=== PATIENT | female | born 1945 | race Caucasian/White ===

== ENCOUNTER 2017-10-28 09:56 | Inpatient (IN) | payer OTHER ==
[2017-10-28] MEDS ORDERED: ACETAMINOPHEN 325 MG TAB PO ONE (11:16)
[2017-10-28] MEDS ORDERED: ONDANSETRON DISINTEGRATING 4 MG TAB PO PRN (14:35)
[2017-10-28] MEDS ORDERED: ONDANSETRON 4 MG/2 ML VIAL IVP PRN (14:35)
--- NOTE | 2017-10-28 15:03 | GHP ---
[f rep st] HISTORY AND PHYSICAL DATE OF ADMISSION: 10/28/2017 CHIEF COMPLAINT: Fall with hip pain. HISTORY OF PRESENT ILLNESS: This is a 72-year-old female with a history of osteoporosis. She slippe d on the ice onto the right side. She suffered a pubic rami fracture, possible sacral fracture. Ther e was no syncope. It was a mechanical fall. She has been feeling well otherwise. She has a history of lymphoma and had radiation about a month and half ago. She is also on Rituxan. No other complai nts. REVIEW OF SYSTEMS: A 10-point review of systems was obtained and negative. PAST MEDICAL HISTORY: 1. 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 She is st atus post radiation and undergoing 2 years of Rituxan. 2. Hypertension. 3. Osteoporosis. MEDICATIONS: Reviewed. SOCIAL HISTORY: No smoking. Occasional alcohol. Lives by herself. There is a 2 story apartment. FAMILY HISTORY: Both parents are . PHYSICAL EXAM: VITAL SIGNS: Afebrile, blood pressure is 124/72, heart rate 89, oxygen saturation 94 % on room air. In general, patient is well developed, no apparent distress. HEENT: Nonicteric scle shabbir. Extraocular movements intact. Moist mucous membranes. NECK: Supple. No thyromegaly. LUNGS: Good effort. Clear to auscultation bilaterally. CARDIOVASCULAR: Regular rate and rhythm. No mur murs, gallops. ABDOMEN: Positive bowel sounds. Soft, nontender, nondistended. No hepatosplenomega ly. EXTREMITIES: No clubbing, cyanosis, or edema. SKING: Without rash, dry, intact. NEUROLOGIC: Alert and oriented x3. Moving all 4 extremities equally. PSYCH: Normal mood and affect. LABS: There are no labs. RADIOLOGY: Hip x-ray shows acute fractures of the right inferior superior pubic rami and probable ri ght sacral fracture. ASSESSMENT: A 72-year-old female with a pelvic fracture. PLAN: 1. Pelvic fracture. The patient will be weightbearing as tolerated. We will give pain medicines. T his is non operative. 2. History of lymphoma, will check some labs. 3. Osteoporosis, continue her vitamin D and bisphosphonate. /[id number]/MODL
--- NOTE | 2017-10-28 15:57 | PDMN ---
Medical Necessity Medical necessity: C/M review: est. 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
[2017-10-28] MEDS ORDERED: ACETAMINOPHEN 650 MG SUPP PR SCH ×2 (16:00)
[2017-10-28] MEDS ORDERED: ACETAMINOPHEN 650 MG SUPP PR PRN (16:22)
[2017-10-28] MEDS: ACETAMINOPHEN 325 MG TAB PO SCH ×2 (16:51→21:14)
--- NOTE | 2017-10-28 17:30 | EDPHY ---
H & P Smoking Status: Never smoked HPI/ROS: Chief complaint: Pelvis pain History of present illness: This is a 72-year-old female who was brought to the emergency department for pelvic pain. Patient slipped and fell on the ice striking her pelvis. Since then she has had pain. She can still move. However pain is better when she lays still. She denies associated signs or symptoms including no open wounds. No report of trauma to other parts of the body. Review of systems: A 10 point review of systems was obtained and other than described above was negative (Curt Yanez) Physical Exam: General Appearance: Alert, nontoxic Eyes: PERRLA Respiratory: Lungs clear to auscultation bilaterally Cardiac: Regular rate and rhythm. Gastrointestinal: Bowel sounds are normal. Abdomen is soft, nondistended, nontender. Neurological: Alert and oriented x4. Strength and sensation intact and symmetrical. Skin: No lesions consistent with trauma. Musculoskeletal: Head is nontender. Back nontender. The chest wall is nontender. There is discomfort moving the pelvis. She has discomfort moving the right hip although she can still do this. The rest of the extremities are unremarkable. (Curt Yanez) Constitutional: Initial Vital Signs Temperature (C) 36.8 C 10/28/17 10:02 Heart Rate 95 10/28/17 10:02 Respiratory Rate 18 10/28/17 10:02 Blood Pressure 121/80 H 10/28/17 10:02 O2 Sat (%) 97 10/28/17 10:02 O2 Delivery Mode Room Air Allergies/Adverse Reactions: bacitracin [From Neosporin ([id number])] Allergy (Verified 10/28/17 10:02) neomycin [From Neosporin ([id number]-kqs-[id number])] Allergy (Verified 10/28/17 10:02) polymyxin B [From Neosporin ([id number]-ibr-[id number])] Allergy (Verified 10/28/17 10:02) Pork/Porcine Containing Products Allergy (Verified 10/28/17 10:02) Home Medications: Medication Instructions Recorded Alendronate Sodium [Fosamax 70 MG 70 mg PO WE@0700 10/28/17 (*)] Ascorbic Acid [Vitamin C 500 mg 1,000 mg PO DAILY 10/28/17 (*)] Calcium Carb W/Vit D [Calcium Carb 500 mg PO DAILY 10/28/17 W/Vit D 500/200 (*)] Cholecalciferol Vit D3 [Vitamin D3 1,000 units PO DAILY 10/28/17 (*)] Herbals/Supplements -Info Only 1 ea PO DAILY 10/28/17 Lisinopril [Zestril 10 mg (*)] 10 mg PO DAILY 10/28/17 Multivitamins [Multivitamin (*)] 1 tab PO DAILY 10/28/17 [place]-3 Fatty Acids [Fish Oil 1000 1,000 mg PO DAILY 10/28/17 mg (*)] riTUXimab [Rituxan 100mg (RX)] 0 mg IV Q60D 10/28/17 MDM/Departure - [facility] Imaging: I viewed and interpreted images myself - [facility] Medications Given: Acetaminophen (Tylenol) 650 mg PO TID [facility] Stop: 04/26/18 16:29 Last Admin: 10/30/17 20:18 Dose: 650 mg Enoxaparin Sodium (Lovenox) 40 mg SC DAILY JESSY Stop: 04/28/18 13:44 Last Admin: 10/30/17 14:04 Dose: 40 mg Lisinopril (Zestril) 10 mg PO DAILY JESSY Stop: 04/27/18 08:59 Last Admin: 10/30/17 09:47 Dose: 10 mg Polyethylene Glycol (Miralax) 17 gm PO DAILY JESSY PRN Reason: Protocol Stop: 04/28/18 08:59 Last Admin: 10/30/17 09:52 Dose: 17 gm Senna/Docusate Sodium (Senokot-S) 1 - 2 tab PO BID JESSY PRN Reason: Protocol Stop: 04/27/18 20:59 Last Admin: 10/30/17 20:18 Dose: 1 tab Tramadol HCl (Ultram) 50 mg PO Q6HRS PRN PRN Reason: Pain, Moderate Able to Take PO Stop: 04/26/18 14:40 Last Admin: 10/30/17 20:18 Dose: 50 mg Discontinued Medications Acetaminophen (Tylenol) 650 mg PO EDNOW ONE Stop: 10/28/17 11:17 Last Admin: 10/28/17 11:47 Dose: 650 mg Acetaminophen (Tylenol Rectal) 650 mg RI TID JESSY Stop: 04/26/18 15:59 Last Admin: 10/28/17 16:57 Dose: Not Given ED Course/Re-evaluation: Patient is discussed with my secondary supervising physician Dr. Mikayla Decker. Patient presents to the emergency department after sustaining a fall injuring her pelvis. She does appear to have multiple pelvic fractures. She is hemodynamically stable. By history and physical exam no evidence of trauma to other parts of the body. She does not appear to be able to ambulate well on her own. I do not believe she is safe for discharge home. She will be admitted to the hospitalist service for further evaluation and care. Dr. Pickard of orthopedics will consult on this patient. The plan has been discussed with the patient who voiced understanding and agreement with it. (Curt Yanez) The patient was evaluated and managed by the physician patient services assistant. I have reviewed this chart and I agree with the findings and plan of care as documented , as indicated by my signature. I am the secondary supervising physician. ( Mikayla Decker) Differential Diagnosis: Included but not limited to contusion, bony fracture, joint dislocation (Curt Yanez) - Depart Disposition: [facility] Inpatient Acute Clinical Impression: Pelvic fracture Qualifiers: Encounter type: initial encounter Pelvic bone location: unspecified part of pelvis Fracture type: closed Fracture alignment: nondisplaced Qualified Code(s) : S32.9XXA - Fracture of unspecified parts of lumbosacral spine and pelvis, initial encounter for closed fracture Condition: Fair
--- NOTE | 2017-10-28 17:56 | ASMTCMCOM ---
CM Note CM Note Notes: Pt admitted for right pelvis fracture (non-operative), and being unable to ambulate independently or return home safely at this time. Spoke with patient and we discussed possibility of going home from the ED and that her grandson Nils and/or her niece Ayleen (pt's POA?) would be able to stay with her overnight. However, pt wasn't able to successfully ambulate well enough for a safe discharge home. Patient states her home has two levels, all the bedrooms on the top floor and kitchen on the main floor. Patient would not be able to walk up and down stairs at this time. After assessment and discussion with the ED provider it was determined pt would benefit from additional monitoring, inpatient PT/OT assessments and assistance with setting up homecare. We discussed needing to get a walker, elevated toilet seat or bedside commode, and possibly other DME; in addition to setting up homecare. Patient provided information on non-skilled homecare and skilled homecare ([employer]). Anticipate pt to dc home with homecare and DME once medically stable. CM to follow. Date Signed: 10/28/2017 05:55 PM Electronically Signed By:Stefanie Mcelroy RN
--- NOTE | 2017-10-28 22:09 | PDCONSULT ---
[employer] Note: Consult Note - Orthopaedics DOS: 10/28/2017 CC: Right pelvic fractures HPI: Called to evaluate patient by ED PA after patient arrives on floor. 72y F s/p fall after slip on ice p/w Right rami fractures and possible sacral fracture. Patient was able to ambulate after the fall but felt that something was wrong and presented to ED for further evaluation. PMHx: Osteopenia, HTN, Lymphoma Meds: Fosamax for osteopenia, Rituxan, lisinopril SocHx: Nonsmoker. ROS: recently underwent radiation for lymphoma. Otherwise has been fairly active, including regular ambulation. MSK per HPI. Other systems reviewed at baseline PE: AxOx4. unlabored RLE: active hip flexion and motion with minimal pain in bed. Minimal TTP at rami and along lateral sacrum. No pain with log roll of hip. SILT S/S/SP/Dp/T of Right foot. 2+ DP Imaging: Right superior and inferior fractures. Possible right sacrum nondisplaced fracture Plan: 72y F w osteopenia p/w Right rami fractures and possible sacral fracture ( nondisplaced) after SLF on ice. - Recommend nonop treatment for pelvic fractures given that patient has already mobilized and ED films do not show vertical displacement of pelvis - WBAT RLE - PT and pain control - [facility]up [facility] in 2-3 weeks for repeat films and exam. - obtaining inlet/outlet pelvic views
[2017-10-29 05:45] LABS: PLATELET COUNT 133 10^3/uL (150-400)
[2017-10-29] MEDS: ACETAMINOPHEN 325 MG TAB PO SCH ×3 (11:15→21:51)
[2017-10-29] MEDS: LISINOPRIL 10 MG TAB PO SCH (11:16)
--- NOTE | 2017-10-29 11:21 | HOSPPROG ---
Hospitalist Progress Note Assessment/Plan: Patient is a 72-year-old female with a history of osteoporosis. She slipped and fell on her right side. She sustained a pubic ramus fracture. Today is my 1st encounter with the patient. Chart reviewed. *r pelvis fx appreciate ortho wbat she lives in a house with many stairs, will need rehab to strengthen and return there *osteoporosis home med resumed *non-Hodgkin lymphoma s/p radiation and 2 years of Rituxan *recent loss her this past May from a heart attack *dvt prophylaxis: LMWH *Plan: she will require further IP stay for mobility, will initiate bowel protocol and Lovenox. Subjective: Julianne said pain is well managed until she stands. Objective: Vital Signs Temp Pulse Resp BP Pulse Ox 36.5 C 94 15 137/69 H 92 10/29/17 07:57 10/29/17 07:57 10/29/17 07:57 10/29/17 11:16 10/29/17 07:57 Laboratory Results 10/29/17 04:22 10/29/17 04:22 10/28/17 10/29/17 10/30/17 05:59 05:59 05:59 Intake Total 400 350 Output Total 1300 1000 Balance -900 -650 - Physical Exam Constitutional: uncomfortable Eyes: PERRL Ears, Nose, Mouth, Throat: hearing normal Cardiovascular: regular rate and rhythym Respiratory: no respiratory distress, reduced air movement Gastrointestinal: normoactive bowel sounds Skin: warm Musculoskeletal: generalized weakness Neurologic: AAOx3 Psychiatric: interacting appropriately ICD10 Worksheet Patient Problems: Problems Problem Status Onset Pelvic fracture Acute
--- NOTE | 2017-10-29 13:44 | ASMTCMCOM ---
CM Note CM Note Notes: Patient admitted for a non-surgical pelvic fracture. PT/OT recommending SNF. Patient has elected to go to [facility] for Rehab. They will visit with her tomorrow. Current CM Discharge plan: [facility] Date Signed: 10/29/2017 01:44 PM Electronically Signed By:Dione Nguyen RN
[2017-10-29] MEDS ORDERED: MAGNESIUM HYDROXIDE 30 ML UDCUP PO PRN (16:31)
[2017-10-29] MEDS ORDERED: LACTULOSE 20 GM/30 ML UDCUP PO PRN (16:31)
[2017-10-29] MEDS ORDERED: BISACODYL 10 MG SUPP PR PRN (16:31)
[2017-10-29] MEDS: traMADol 50 MG TAB PO PRN (17:26)
[2017-10-29] MEDS: SENNOSIDES/DOCUSATE SODIUM TAB PO SCH (21:51)
[2017-10-30] MEDS: ACETAMINOPHEN 325 MG TAB PO SCH ×3 (09:46→20:18)
[2017-10-30] MEDS: SENNOSIDES/DOCUSATE SODIUM TAB PO SCH ×2 (09:46→20:18)
[2017-10-30] MEDS: LISINOPRIL 10 MG TAB PO SCH (09:47)
[2017-10-30] MEDS: POLYETHYLENE GLYCOL 3350 17 GM PKT PO SCH (09:52)
--- NOTE | 2017-10-30 10:47 | ASMTCMCOM ---
CM Note CM Note Notes: Referral sent to [facility] pt is friend of [facility]. [facility] does state she may have a female bed tomorrow and will review referral. CM to follow. D/c plan fo care: [facility] vs. SNF. Date Signed: 10/30/2017 10:47 AM Electronically Signed By:BLADE Mederos
--- NOTE | 2017-10-30 13:39 | HOSPPROG ---
Hospitalist Progress Note Assessment/Plan: Patient is a 72-year-old female with a history of osteoporosis. She slipped and fell on her right side. She sustained a pubic ramus fracture. *r pelvis fx appreciate ortho wbat she lives in a house with many stairs, will need rehab to strengthen and return there *osteoporosis home med resumed *non-Hodgkin lymphoma s/p radiation and 2 years of Rituxan sees Dr Uribe at *recent loss her this past January from a heart attack *dvt prophylaxis: LMWH *Plan: she would like to be discharged to if possible or to [facility]. Subjective: Julianne overall is feeling fine. Objective: Vital Signs Temp Pulse Resp BP Pulse Ox 36.4 C 99 18 120/66 91 L 10/30/17 07:26 10/30/17 07:26 10/30/17 07:26 10/30/17 09:47 10/30/17 07:26 Laboratory Results 10/29/17 04:22 10/29/17 04:22 10/29/17 10/30/17 10/31/17 05:59 05:59 05:59 Intake Total 400 1000 Output Total 1300 3800 700 Balance -900 -2800 -700 - Physical Exam Constitutional: no apparent distress, appears nourished Eyes: PERRL Ears, Nose, Mouth, Throat: hearing normal Cardiovascular: regular rate and rhythym Respiratory: no respiratory distress Gastrointestinal: normoactive bowel sounds Skin: warm Musculoskeletal: generalized weakness Neurologic: AAOx3 Psychiatric: interacting appropriately ICD10 Worksheet Patient Problems: Problems Problem Status Onset Pelvic fracture Acute
[2017-10-30] MEDS: ENOXAPARIN 40 MG/0.4 ML SYR SC SCH (14:04)
--- NOTE | 2017-10-30 15:34 | ASMTCMCOM ---
CM Note CM Note Notes: Pt accepted at [facility], she will discuss w friends/family to determine if she will choose [facility] or [facility]. D/c plan of care: [facility] or [facility] SN[facility] likely tomorrow. Date Signed: 10/30/2017 03:34 PM Electronically Signed By:BLADE Mederos
[2017-10-30] MEDS: traMADol 50 MG TAB PO PRN (20:18)
[2017-10-31 00:02] VITALS: O2SAT 96
[2017-10-31 07:36] VITALS: BP 99/67; PULSE 86; RESP 16; TEMP 97.8
--- NOTE | 2017-10-31 08:22 | HOSPPROG ---
Hospitalist Progress Note Assessment/Plan: Patient is a 72-year-old female with a history of osteoporosis. She slipped and fell on her right side. She sustained a pubic ramus fracture. *r pelvis fx appreciate ortho wbat she lives in a house with many stairs, will need rehab to strengthen and return there *osteoporosis home med resumed (Fosamax) *non-Hodgkin lymphoma s/p radiation and 2 years of Rituxan sees Dr Uribe at *recent loss her this past January from a heart attack *dvt prophylaxis: LMWH *Plan: dc today Subjective: Julianne is feeling well, ready to be dc. Objective: Vital Signs Temp Pulse Resp BP Pulse Ox 36.6 C 86 16 99/67 L 96 10/31/17 07:34 10/31/17 07:34 10/31/17 07:34 10/31/17 07:34 10/31/17 07:34 Laboratory Results 10/29/17 04:22 10/29/17 04:22 10/30/17 10/31/17 11/01/17 05:59 05:59 05:59 Intake Total 1000 400 Output Total 3800 1300 Balance -2800 -900 - Physical Exam Constitutional: appears nourished Eyes: PERRL Ears, Nose, Mouth, Throat: hearing normal Respiratory: no respiratory distress Skin: warm Musculoskeletal: generalized weakness Neurologic: AAOx3 Psychiatric: interacting appropriately ICD10 Worksheet Patient Problems: Problems Problem Status Onset Pelvic fracture Acute
[2017-10-31] MEDS ORDERED: CALCIUM CARB W/VIT D 500 MG TAB PO SCH (09:00)
[2017-10-31] MEDS ORDERED: ALENDRONATE SODIUM 70 MG TAB PO ONE (09:00)
[2017-10-31] MEDS ORDERED: ASCORBIC ACID 500 MG TAB PO SCH (09:00)
--- NOTE | 2017-10-31 09:14 | PDIAF ---
- Diagnosis Diagnosis: r pelvis fx, non hodgkin lymphoma, osteoporosis Code Status: Do Not Resuscitate - Medication Management Discharge Medications: Medications to Continue on Transfer Alendronate Sodium [Fosamax 70 MG (*)] 70 mg PO WE@0700 10/28/17 [Last Taken ] Ascorbic Acid [Vitamin C 500 mg (*)] 1,000 mg PO DAILY 10/28/17 [Last Taken 12/09 12:00] Calcium Carb W/Vit D [Calcium Carb W/Vit D 500/200 (*)] 500 mg PO DAILY [Last Taken 10/27/17 12:00] Cholecalciferol Vit D3 [Vitamin D3 (*)] 1,000 units PO DAILY 10/28/17 [Last Taken 10/27/17 12:00] Herbals/Supplements -Info Only 1 ea PO DAILY 10/28/17 [Last Taken Unknown] Lisinopril [Zestril 10 mg (*)] 10 mg PO DAILY 10/28/17 [Last Taken 10/28/17 07: 00] Multivitamins [Multivitamin (*)] 1 tab PO DAILY 10/28/17 [Last Taken 10/27/17 12 :00] [place]-3 Fatty Acids [Fish Oil 1000 mg (*)] 1,000 mg PO DAILY 10/28/17 [Last Taken 10/27/17 12:00] riTUXimab [Rituxan] 0 mg IV Q60D 10/28/17 [Last Taken 10/10/17] Acetaminophen [Tylenol 325mg (*)] 650 mg PO TID tab 10/31/17 [Last Taken Unknown] Enoxaparin [Lovenox 40 MG (*)] 40 mg SC DAILY #7 syr 10/31/17 [Last Taken Unknown] Polyethylene Glycol 3350 [Miralax 17 gm (*)] 17 gm PO DAILY pkt 10/31/17 [Last Taken Unknown] Sennosides/Docusate Sodium [Senokot-S] 1 - 2 tab PO BID tab 10/31/17 [Last Taken Unknown] traMADol [Ultram 50 mg (*)] 50 mg PO Q6HRS PRN tab 10/31/17 [Last Taken Unknown ] Discharge Medications: Refer to the Discharge Home Medication list for PRN reason. - Orders Services needed: Physical Therapy, Occupational Therapy Isolation Type: None Diet Recommendation: no restrictions on diet Diet Texture: Regular Texture Diet Activity/Weight Bearing Restrictions: wbat Additional: follow up w Dr Pickard [facility] in 2 weeks for repeat xrays. CHARLIE wright when patient is more mobile - Follow Up Care Current Providers and Referrals: KAYLIN CELAYA [Primary Care Provider] - Moise Pickard MD [Medical Doctor] -
[2017-10-31] MEDS: ACETAMINOPHEN 325 MG TAB PO SCH (09:21)
[2017-10-31] MEDS: SENNOSIDES/DOCUSATE SODIUM TAB PO SCH (09:22)
[2017-10-31] MEDS: POLYETHYLENE GLYCOL 3350 17 GM PKT PO SCH (09:23)
[2017-10-31] MEDS: ENOXAPARIN 40 MG/0.4 ML SYR SC SCH (09:23)
[2017-10-31] MEDS: LISINOPRIL 10 MG TAB PO SCH (09:23)
--- NOTE | 2017-10-31 10:21 | GDS ---
[f rep st] DISCHARGE SUMMARY DISCHARGE DIAGNOSES: 1. Right pelvic fracture, possible sacral fracture. 2. Osteoporosis. 3. Non-Hodgkin's lymphoma. 4. Recent stressors. CONSULTATION: Dr. Pickard. HISTORY: Briefly, the patient is a 72-year-old female with a history of osteoporosis. She slipped and fell on her right side. She sustained a pubic ramus fracture. She was admitted and evaluated by Orthopedics. The recommendation was weightbearing as tolerated. Today, she will be discharged to a long-term facility, [facility], for rehabilitation. She will further follow up with Dr. Pickadr in 2 weeks. HOSPITAL COURSE: 1. Right pelvis fracture, possible sacral fracture. She will go to rehabilitation. 2. Osteoporosis, on Fosamax. 3. Non-Hodgkin's lymphoma. She sees Dr. Uribe at . She is status post radiation and 2 years of Rituxan. 4. Recent stressors. Her this past January from a heart attack. She is coping quite well. DISCHARGE CONDITION: Blood pressure is 119/71, heart rate is 85, respiratory rate is 19, O2 sats on room air 94%, temperature 36.5 Celsius, O2 saturation on room air 96%. DISCHARGE INSTRUCTIONS: 1. Weightbearing as tolerated. 2. Follow up with Dr. Pickard in 2 weeks. 3. Continue Lovenox until she is more mobile. TIME SPENT: Greater than 30 minutes discharging and coordinating the patient's care. Copy requested to: Dr. Uribe /[id number]/MODL MTDD
--- NOTE | 2017-10-31 11:53 | ASDISCHSUM ---
Discharge Information Plan Status:SNF Medically Cleared to Leave: Discharge Date:10/31/2017 11:26 AM D/C [facility] D[facility]C [facility] Projected Discharge Date:10/31/2017 11:00 AM Transportation at D/C: Discharge Delay Reason: Follow-Up Date:10/31/2017 11:00 AM Discharge Slot: Final Diagnosis: Placement Information Referral Type:*Assisted/SNF Referral ID:[id number] Provider Name:[facility] Address 1:[address] [facility] [address] [facility] Address 2: City:[place] Selection Factors: State:[place] Patient Contact Information Contact Name:MADHAV Relationship:Selena Address:[facility] Work Phone: City: [facility] Phone: [facility] Code: Email: Financial Information Financial Class: Primary Plan Desc:MEDICARE INPATIENT Primary Plan Number:[id number] [facility] Secondary Plan Number:[id number] Assessment Information [facility] CM Progress Note CM Note CM Note Notes: Pt admitted for right pelvis fracture (non-operative), and being unable to ambulate independently or return home safely at this time. Spoke with patient and we discussed possibility of going home from the ED and that her grandson Nils and/or her niece Ayleen (pt's POA?) would be able to stay with her overnight. However, pt wasn't able to successfully ambulate well enough for a safe discharge home. Patient states her home has two levels, all the bedrooms on the top floor and kitchen on the main floor. Patient would not be able to walk up and down stairs at this time. After assessment and discussion with the ED provider it was determined pt would benefit from additional monitoring, inpatient PT/OT assessments and assistance with setting up homecare. We discussed needing to get a walker, elevated toilet seat or bedside commode, and possibly other DME; in addition to setting up homecare. Patient provided information on non-skilled homecare and skilled homecare ([employer]). Anticipate pt to dc home with homecare and DME once medically stable. CM to follow. Date Signed: 10/28/2017 05:55 PM Electronically Signed By:Stefanie Mcelroy RN [facility] CM Progress Note CM Note CM Note Notes: Patient admitted for a non-surgical pelvic fracture. PT/OT recommending SNF. Patient has elected to go to [facility] for Rehab. They will visit with her tomorrow. Current CM Discharge plan: [facility] Date Signed: 10/29/2017 01:44 PM Electronically Signed By:Dione Nguyen RN [facility] CM Progress Note CM Note CM Note Notes: Referral sent to [facility] , pt is friend of [facility]. [facility] does state she may have a female bed tomorrow and will review referral. CM to follow. D/c plan fo care: [facility] vs. SNF. Date Signed: 10/30/2017 10:47 AM Electronically Signed By:BLADE Mederos [facility] CM Progress Note CM Note CM Note Notes: Pt accepted at [facility], she will discuss w friends/family to determine if she will choose or [facility]. D/c plan of care: [facility] likely tomorrow. Date Signed: 10/30/2017 03:34 PM Electronically Signed By:BLADE Mederos Case Management Discharge Plan Note Case Management Discharge Discharge Order Complete? Answers: Yes Patient to Obtain Answers: Other Notes: [facility] and [facility] Medications Transportation Arranged Answers: Other Notes: [facility] will Pick (Date 10/31/2017 11:15 AM & Time) Faxed Final Orders Answers: Yes Agency/Facility Transfer Answers: Yes Report Printed & Faxed to Receiving Agency Family Notified Answers: Yes Notes: pt will notify neice Discharge Comments Notes: Pt w/dc orders to SNF today. Met w/pt who let me know she has chosen [facility] over [facility] since private room available at [facility]. Spoke to Camila at [facility] and they are ready to accept. Orders and info sent through [employer]. Discussed w/RN who will call report. Date Signed: 10/31/2017 10:26 AM Electronically Signed By:Linda Juarez RN Intervention Information Intervention Type:*IM-Signed Date of Service:10/31/2017 10:15 AM Patient Type:Inpatient Staff Member:Blanca Downing Hours: Discipline: Severity: Comment:
[2017-11-07] MEDS ORDERED: ALENDRONATE SODIUM 70 MG TAB PO SCH (07:00)
== END 2017-10-31 11:26 | DRG 536 ==
LOC: F3N 13:13 → OBSVTOIN 14:39
PROVIDERS: ADMIT Internal Medicine; ATTEND Internal Medicine
DX: S32.511A Fracture of superior rim of right pubis, initial encounter for closed fracture (principal); S32.591A Other specified fracture of right pubis, initial encounter for closed fracture; S32.19XA Other fracture of sacrum, initial encounter for closed fracture; W00.0XXA Fall on same level due to ice and snow, initial encounter; Y92.9 Unspecified place or not applicable; Y99.8 Other external cause status; I10 Essential (primary) hypertension; C82.90 Follicular lymphoma, unspecified, unspecified site; Z92.3 Personal history of irradiation
CPT/HCPCS: 97110-GP; 97116-GP; 97161-GP; 97166-GO; 97530-GP; 97535-GO; G8978-GP-CJ; G8979-GP-CI; G8987-GO-CK; G8988-GO-CI; G8989-GO-CJ; J1650

== ENCOUNTER 2018-10-19 19:56 | Emergency (ER) | payer OTHER ==
--- NOTE | 2018-10-19 20:08 | EDPHY ---
HPI/HX/ROS/PE/MDM Narrative: CHIEF COMPLAINT: Vaginal bleeding HISTORY OF PRESENT ILLNESS: The patient is a 73 y/o female with a history of non-Hodgkin's lymphoma and diabetes complaining of vaginal bleeding with a couple of blood clots, onset at 19:00, 1 hour ago. Prior to the onset of bleeding she did a 3 mile walk and did not have any pain. Today she did notice some mild bilateral lower extremity swelling, right greater than left, which is abnormal. She is on continuous treatment for the lymphoma (Rituxan), which she last received earlier in September. Since she is on Rituxan, she does bleed more easily. She went through menopause when she was around 49 years old. She denies any significant past obstetrics gyn history. . No fever, chills, chest pain, shortness of breath, palpitations, vomiting, diarrhea, urinary complaints, headache, lightheadedness. REVIEW OF SYSTEMS: Aside from elements discussed in the HPI, a comprehensive 10-point review of systems was reviewed and is negative. PAST MEDICAL HISTORY: Non-Hodgkin lymphoma, type 2 diabetes, osteoporosis SOCIAL HISTORY: Friend at bedside, lives in [place], retired VITAL SIGNS: Reviewed by me GENERAL: Well-developed, well-nourished, resting comfortably in no respiratory distress. HEENT: Atraumatic. Eyes: No icterus, no injection. Mouth: moist mucous membranes. No erythema or lesions. Neck: supple with no adenopathy. LUNGS: Clear to auscultation bilaterally, no wheezes, rhonchi or rales. CARDIAC: Regular rate and rhythm, no rubs, murmurs or gallops. ABDOMEN: Soft, nontender, nondistended, bowel sounds normal. BACK: No CVA tenderness. : Blood at the introitus with a dried clot. EXTREMITIES: No trauma. Mild edema bilaterally right greater than left slightly. Nontender. Range of motion is normal throughout. NEURO: Alert and oriented, grossly nonfocal. SKIN: Warm and dry, no rash. PSYCHIATRIC: Normal mentation, no agitation. Portions of this note were transcribed by a medical lab specialist. I personally performed a history, physical exam, medical decision making, and confirmed accuracy of information the transcribed note. ED Course: The patient is a 73 y/o female with a history of non-Hodgkin's lymphoma and diabetes presenting with vaginal bleeding with a couple of blood clots, onset at 19:00, 1 hour ago. On exam she has blood at the introitus with a dried clot. Labs and pelvic US ordered; 1L IV NS administered. 2114: I consulted with the radiologist who reports that the patient has a complex cystic lesion at the uterine fundus. No UE ovarian masses noted. Lab were delayed but did demonstrate a sodium of 128. H&H were stable. 2117: Reassessed patient and discussed US findings. I discussed the possibility of having an abdominopelvic CT and the patient and I agree that it is not necessary at this time. She will need to follow up with an ROAD PATCHER for the abnormal uterine findings. She will also need to follow up with her oncologist regarding the low sodium. Return precautions provided; patient is comfortable with this plan. MDM: Differential diagnosis of the patient's vaginal bleeding includes dysfunctional uterine bleeding, trauma, cervicitis, uterine polyps, uterine fibroids, uterine cancer, cervical cancer, and infection. - Data Points Imaging Results: Imaging Impressions Pelvic/Renal Ultrasound 10/19/18 20:19 Impression: Complex cystic lesion at the uterine fundus either in a submucosal location or associated with the fundal portion of the endometrium. The etiology is indeterminate. This could represent endometrial polyps versus degenerating fibroid or associated with endometrial hyperplasia/carcinoma. Consider correlation with hysteroscopy considering development of vaginal bleeding. Findings discussed with Kriss Luna MD at 21:14 hour, 10/19/2018. Imaging: Discussed imaging studies w/ inbound call center representative Radiologist, I viewed and interpreted images myself Laboratory Results: Laboratory Results 10/19/18 20:20 10/19/18 20:20 10/19/18 10/19/18 20:20 20:20 WBC 7.37 10^3/uL 10^3/uL (3.80-9.50) RBC 4.36 10^6/uL 10^6/uL (4.18-5.33) Hgb 13.6 g/dL g/dL (12.6-16.3) Hct 38.5 % % (38.0-47.0) MCV 88.3 fL fL (81.5-99.8) MCH 31.2 pg pg (27.9-34.1) MCHC 35.3 g/dL g/dL (32.4-36.7) RDW 13.2 % % (11.5-15.2) Plt Count 155 10^3/uL 10^3/uL (150-400) MPV 10.7 fL fL (8.7-11.7) Neut % (Auto) 80.3 % H % (39.3-74.2) Lymph % (Auto) 9.8 % L % (15.0-45.0) Bent % (Auto) 9.0 % % (4.5-13.0) Eos % (Auto) 0.3 % L % (0.6-7.6) Baso % (Auto) 0.3 % % (0.3-1.7) Nucleat RBC Rel Count 0.0 % % (0.0-0.2) Absolute Neuts (auto) 5.93 10^3/uL 10^3/uL (1.70-6.50) Absolute Lymphs (auto) 0.72 10^3/uL L 10^3/uL (1.00-3.00) Absolute Monos (auto) 0.66 10^3/uL 10^3/uL (0.30-0.80) Absolute Eos (auto) 0.02 10^3/uL L 10^3/uL (0.03-0.40) Absolute Basos (auto) 0.02 10^3/uL 10^3/uL (0.02-0.10) Absolute Nucleated RBC 0.00 10^3/uL 10^3/uL (0-0.01) Immature Gran % 0.3 % % (0.0-1.1) Immature Gran # 0.02 10^3/uL 10^3/uL (0.00-0.10) Sodium 128 mEq/L L mEq/L (135-145) Potassium 4.3 mEq/L mEq/L (3.5-5.2) Chloride 95 mEq/L L mEq/L (97-110) Carbon Dioxide 25 mEq/l mEq/l (22-31) Anion Gap 8 mEq/L mEq/L (6-14) BUN 15 mg/dL mg/dL (7-23) Creatinine 0.7 mg/dL mg/dL (0.6-1.0) Estimated GFR > 60 Glucose 165 mg/dL H mg/dL (70-100) Calcium 9.4 mg/dL mg/dL (8.5-10.4) Medications Given: Discontinued Medications Sodium Chloride (Ns) 1,000 mls @ 0 mls/hr IV ONCE ONE; Wide Open PRN Reason: Protocol Stop: 10/19/18 20:18 Last Admin: 10/19/18 20:25 Dose: 1,000 mls General Time Seen by Provider: 10/19/18 20:06 Initial Vital Signs: Initial Vital Signs Temperature (C) 36.7 C 10/19/18 20:00 Heart Rate 84 10/19/18 20:00 Respiratory Rate 18 10/19/18 20:00 Blood Pressure 134/55 H 10/19/18 20:00 O2 Sat (%) 97 10/19/18 20:00 O2 Delivery Mode Room Air Allergies/Adverse Reactions: bacitracin [From Neosporin ([id number])] Allergy (Verified 10/19/18 19:57) neomycin [From Neosporin ([id number])] Allergy (Verified 10/19/18 19:57) polymyxin B [From Neosporin ([id number])] Allergy (Verified 10/19/18 19:57) Pork/Porcine Containing Products Allergy (Verified 10/19/18 19:57) Home Medications: Medication Instructions Recorded Alendronate Sodium [Fosamax 70 MG 70 mg PO WE@0700 10/28/17 (*)] Ascorbic Acid [Vitamin C 500 mg 1,000 mg PO DAILY 10/28/17 (*)] Calcium Carb W/Vit D [Calcium Carb 500 mg PO DAILY 10/28/17 W/Vit D 500/200 (*)] Cholecalciferol Vit D3 [Vitamin D3 1,000 units PO DAILY 10/28/17 (*)] Herbals/Supplements -Info Only 1 ea PO DAILY 10/28/17 Lisinopril [Zestril 10 mg (*)] 10 mg PO DAILY 10/28/17 Multivitamins [Multivitamin (*)] 1 tab PO DAILY 10/28/17 [place]-3 Fatty Acids [Fish Oil 1000 1,000 mg PO DAILY 10/28/17 mg (*)] riTUXimab [Rituxan] 0 mg IV Q60D 10/28/17 Acetaminophen [Tylenol 325mg (*)] 650 mg PO TID tab 10/31/17 Enoxaparin [Lovenox 40 MG (*)] 40 mg SC DAILY #7 syr 10/31/17 Polyethylene Glycol 3350 [Miralax 17 gm PO DAILY pkt 10/31/17 17 gm (*)] Sennosides/Docusate Sodium 1 - 2 tab PO BID tab 10/31/17 [Senokot-S] traMADol [Ultram 50 mg (*)] 50 mg PO Q6HRS PRN tab 10/31/17 Departure - Departure Disposition: Home, Routine, Self-Care Clinical Impression: Vaginal bleeding, Hyponatremia Condition: Good Instructions: Dysfunctional Uterine Bleeding (ED) Additional Instructions: It is very important that she follow up with a Paid Search Marketing Strategist doctor to have a biopsy of the uterine abnormality. You been given a referral to Dr. Lassiter. You may also follow up with OBGYN of your trace at the [facility]. Please return to the emergency department or seek care urgently if you develop severe abdominal bleeding, lightheadedness, dizziness, fainting, abdominal pain , or fevers. Of note, your sodium is also on the low side. I encourage you to stay well- hydrated and drink plenty of fluid. Her sodium is 128. Please discuss this with her oncologist, he may wish to have it rechecked on Sunday. Referrals: Milagros Lassiter MD [Medical Doctor] - As per Instructions (Follow-up for biopsy as soon as possible.) KAYLIN CELAYA [Primary Care Provider] - As per Instructions Report Scribed for: Kriss Luna Report Scribed by: Anh Machado Date of Report: 10/19/18 Time of Report: 20:08
[2018-10-19] MEDS ORDERED: NS 1,000 ML IV ONE (20:17)
[2018-10-19 20:36] LABS: PLATELET COUNT 155 10^3/uL (150-400)
[2018-10-19] MEDS ORDERED: IOHEXOL 350mgI/ML (OMNIPAQUE) 150 ML BTL IV ONE (21:26)
[2018-10-19 21:44] VITALS: BP 114/85
== END 2018-10-19 22:00 | disposition home or self-care (01) ==
DX: N93.9 Abnormal uterine and vaginal bleeding, unspecified (principal); E87.1 Hypo-osmolality and hyponatremia; E86.9 Volume depletion, unspecified; Z85.72 Personal history of non-Hodgkin lymphomas
CPT/HCPCS: Q9967